=== PATIENT | male | born 1985 ===

== ENCOUNTER 2018-08-29 19:17 | Emergency (ER) | payer OTHER ==
[~2018-08-29] VITALS: Ht 180.3 cm; Wt 106.6 kg
[2018-08-29 19:35] VITALS: BP 158/105
--- NOTE | 2018-08-29 20:12 | ER.PDOC ---
General Chief Complaint: General Complaint Stated Complaint: ELEVATED BP TRAVEL OUT OF US: No Time seen by MD: 20:08 Source: patient Exam Limitations: no limitations History of Present Illness Initial Comments Elevated blood pressure today. Severity: moderate Associated Symptoms: denies symptoms Allergies: Coded Allergies: Penicillins (Verified Allergy, Unknown, Hives, 10/18/16) "GOT WHERE I COULDN'T BREATHE" Past Medical History Medical History: no pertinent history Surgical History: tonsillectomy Social History Smoking: chew Alcohol Use: heavy Drug Use: none Review of Systems Constitutional: no symptoms reported EENTM: no symptoms reported Cardiovascular: no symptoms reported Gastrointestinal: no symptoms reported All Other Systems: Reviewed and Negative Physical Exam General Appearance: No Apparent Distress, WD/WN Neck: Non-Tender, Full Range of Motion, Supple, Normal Inspection Respiratory: chest non-tender, lungs clear, normal breath sounds, no respiratory distress CVS: reg rate & rhythm, no murmur, no gallop, pulses nml, nml capillary refill Gastrointestinal: Normal Bowel Sounds, No Organomegaly, No Pulsatile Mass, Non Tender Back: Normal Inspection Extremities: Normal Range of Motion Neurologic/Psychiatric: project systems engineer II-XII NML as Tested Skin: Normal Color Results/Orders Results/Orders Laboratory Tests Test 08/29/18 20:25 Sodium Level 142 mmol/L (132-145) Potassium Level 3.7 mmol/L (3.6-5.2) Chloride Level 102.0 mmol/L (96-109) Carbon Dioxide Level 26.4 mmol/L (20.0-32) Glucose Level 97 mg/dL (70-110) Blood Urea Nitrogen 11 mg/dL (7-18) Creatinine 1.14 mg/dL (0.59-1.40) Calcium Level 9.7 mg/dL (8.4-10.5) Anion Gap 17.3 Estimated GFR () 90.7 (>/=60) BUN/Creatinine Ratio 9.0 Departure Time of Disposition: 20:51 Disposition: 01 HOME, SELF-CARE Impression: Primary Impression: Elevated blood pressure reading Condition: Improved Referrals: PCP,UNKNOWN (PCP) PRIMARY CARE PROVIDER Additional Instructions: Keep a blood pressure diary F/U with PCP next next Duration or Time Spent with Pa: 60 mins JOAQUIN MIGUEL MD Aug 29, 2018 20:12
[2018-08-29 20:43] LABS: CALCIUM 9.7 mg/dL (8.4-10.5); CARBON DIOXIDE 26.4 mmol/L (20.0-32)
[2018-08-29 21:08] VITALS: BP 144/88
[2018-08-29 21:10] VITALS: BP 144/88
== END 2018-08-29 21:00 | disposition home or self-care (01) ==
LOC: ER 19:17
DX: R03.0 Elevated blood-pressure reading, without diagnosis of hypertension (principal); F17.220 Nicotine dependence, chewing tobacco, uncomplicated; Z80.0 Family history of malignant neoplasm of digestive organs
CPT/HCPCS: 36415; 80048; 99283